=== PATIENT | male | born 1980 ===

== ENCOUNTER → 2021-04-28 15:16 | Outpatient (CLI) | payer SELFPAY ==
--- NOTE | 2021-04-29 | DI.RAD_ITS ---
Exam(s) XR CLAVICLE LT EXAM: XR CLAVICLE LT CLINICAL HISTORY: TEST FOR ULITE TECHNIQUE: 2D digital imaging was performed. COMPARISON: No exams were available for comparison FINDINGS: BONES: No acute fracture is present. No bony destructive lesion is seen. JOINTS: No dislocation present. SOFT TISSUE: Normal. IMPRESSION: Test for ulite . DATA REPOSITORY: RADIATION DOSE DELIVERED:
--- NOTE | 2021-04-30 | DI.CT_ITS ---
Exam(s) CT ABDOMEN WO EXAM: CT ABDOMEN WO CLINICAL HISTORY: TEST FOR ULITE TECHNIQUE: TEACHING FILE WAS CREATED FOR TEST COMPARISON: No exams were available for comparison FINDINGS: TEST IMPRESSION: TEST
--- NOTE | 2021-04-30 | DI.US_ITS ---
Exam(s) US ABDOMEN EXAM: US ABDOMEN CLINICAL HISTORY: TEST TECHNIQUE: Ultrasound abdomen performed using standard protocol. COMPARISON: No exams were available for comparison FINDINGS: ABDOMINAL AORTA AND IVC: Visualized portions normal caliber. PANCREAS: Normal where visualized. LIVER: Normal. Hepatopedal flow in the Portal Vein. GALLBLADDER: No evidence of cholelithiasis. No evidence of wall thickening. No pericholecystic fluid identified. BILIARY SYSTEM: Common bile duct measures < 7 mm. No intrahepatic biliary ductal dilation. SONG'S SIGN: Negative. KIDNEYS: Kidneys are symmetric in size. No evidence of renal calculi. No evidence of hydronephrosis. No renal mass or cyst identified. SPLEEN: Not enlarged. ASCITES: None seen. IMPRESSION: Normal sonographic appearance of the upper abdomen. Test [facility] DATA REPOSITORY: